=== PATIENT | male | born 1965 | race Caucasian/White ===

== ENCOUNTER 2021-04-10 09:33 | Outpatient (CLI) | payer OTHER ==
[2021-04-10 12:11] LABS: Anion Gap 10 mmol/L (10-20); BUN (Urea Nitrogen) 12 mg/dL (8.4-25.7); Calc. Creatinine Clearance 0 mL/min (70-130); Carbon Dioxide 28 mmol/L (22-29); Chloride 103 mmol/L (98-107); Glucose 101 mg/dL (70-105); Potassium 4.2 mmol/L (3.5-5.1); Sodium 137 mmol/L (136-145)
[2021-04-10 12:23] LABS: #Eosinphils 0.3 10x3/uL (0.0-0.5); #Monocytes 0.4 10x3/uL (0.0-1.1); #Neutrophils 2.1 10x3/uL (1.5-8.4); %Basophils 0.8 % (0.0-2.0); %Eosinophils 7.7 % (0.0-6.0); %Lymphocytes 26.5 % (18.0-47.0); %Monocytes 10.1 % (0.0-10.0); %Neutrophils 54.6 % (40.0-75.0); Hemoglobin 12.2 g/dL (13.5-17.5); Mean Corpuscular HGB CONC 30.7 g/dL (32.0-36.0); Mean Corpuscular Hemoglobin 25.2 pg (27.0-33.0); Mean Platelet Volume 9.6 fl (7.4-10.4); Platelet Count 198 10x3/uL (150-450); Red Blood Cell (RBC) Count 4.84 10x6/uL (4.32-5.72); White Blood Cell (WBC) Count 3.9 10x3/uL (3.5-10.5)
[2021-04-10 12:55] LABS: Anisocytosis SLIGHT = 6-15 cells (100X) (0-5/hpf); RBC Morphology Normal
[2021-04-11 00:59] LABS: SARS-CoV-2 PCR by NAA Not Detected (NotDetected)
== END 2021-04-10 09:34 | disposition home or self-care (01) ==
LOC: LABBT 09:33
PROVIDERS: ATTEND Specialist
DX: Z01.818 Encounter for other preprocedural examination (principal); K64.4 Residual hemorrhoidal skin tags; K64.8 Other hemorrhoids; D50.0 Iron deficiency anemia secondary to blood loss (chronic); Z20.822 Contact with and (suspected) exposure to COVID-19
CPT/HCPCS: 80048; 85025; U0003; U0005

== ENCOUNTER 2021-04-15 09:11 | Day surgery (SDC) | payer OTHER ==
[2021-04-14 10:48] VITALS: BMI 23.1
[2021-04-15] MEDS ORDERED: Ketorolac Tromethamine 30 MG/ML VIAL ONE (10:02)
[2021-04-15] MEDS ORDERED: metroNIDAZOLE 500 MG/100 ML BAG ONE (10:02)
[2021-04-15] MEDS ORDERED: Acetaminophen 500 MG TAB ONE (10:02)
[2021-04-15] MEDS ORDERED: Bupivacaine PF 0.5% 30 ML VIAL ONE (10:53)
[2021-04-15] MEDS ORDERED: Lidocaine 2% Jelly 5 ML TUBE ONE (10:53)
[2021-04-15] MEDS ORDERED: Lidocaine 1% w/Epinephrine 1:100K 20 ML VIAL ONE (10:53)
[2021-04-15] MEDS ORDERED: Fentanyl 100 MCG/2 ML VIAL ONE ×3 (10:59→12:39)
[2021-04-15] MEDS ORDERED: PROPOFOL 200 MG/20 ML VIAL ONE (11:15)
[2021-04-15] MEDS ORDERED: Ondansetron PF 4 MG/2 ML Vial ONE (11:15)
[2021-04-15] MEDS ORDERED: Lidocaine 1% PF 5 ML VIAL ONE (11:15)
[2021-04-15] MEDS ORDERED: Glycopyrrolate 0.2 MG/ML 5 ML SYRINGE ONE (11:15)
[2021-04-15] MEDS ORDERED: Rocuronium Bromide 10 MG/ML (10ML VIAL) ONE (11:15)
[2021-04-15] MEDS ORDERED: ceFOXitin 1 GM VIAL ONE (11:39)
[2021-04-15] MEDS ORDERED: HYDROcodone/Acetaminophen 5/325 mg Tablet ONE (13:35)
== END 2021-04-15 18:20 | disposition home or self-care (01) ==
LOC: SDC 09:11
PROVIDERS: ATTEND Specialist
PROC: 06BY0ZC Excision of Hemorrhoidal Plexus, Open Approach (ICD-10-PCS; principal; 2021-04-15)
DX: K64.8 Other hemorrhoids (principal); K64.4 Residual hemorrhoidal skin tags; D50.0 Iron deficiency anemia secondary to blood loss (chronic); J45.909 Unspecified asthma, uncomplicated; Z79.899 Other long term (current) drug therapy
CPT/HCPCS: 88304; J0694; J1885; J2405; J2704; J3010; S0020